=== PATIENT | male | born 1960 | race Caucasian/White ===

== ENCOUNTER 2021-02-04 07:53 | Day surgery (SDC) | payer OTHER, SELFPAY ==
[~2021-02-04] VITALS: Ht 167.6 cm; Wt 83.5 kg
[2021-02-04] MEDS ORDERED: SIMETHICONE 40 MG/0.6 ML ML ONE (08:26)
[2021-02-04] MEDS ORDERED: MIDAZOLAM HCL 5 MG/5 ML VIAL ONE (08:27)
[2021-02-04] MEDS ORDERED: GLYCOPYRROLATE 0.2 MG/ML VIAL ONE (08:27)
[2021-02-04] MEDS ORDERED: MEPERIDINE 100 MG INJ. 100 MG/ML VIAL ONE (08:27)
[2021-02-04 10:40] VITALS: BP_SYST 123
== END 2021-02-04 11:20 | disposition home or self-care (01) ==
LOC: SDS 07:53 → SMU 07:54 → SDS 11:20
PROVIDERS: ATTEND Colon & Rectal Surgery
DX: Z12.11 Encounter for screening for malignant neoplasm of colon (principal); Z86.010 Personal history of colon polyps; Z79.899 Other long term (current) drug therapy; Z20.822 Contact with and (suspected) exposure to COVID-19
CPT/HCPCS: 45378; G0378; J2175; J2250; J3490; U0003